=== PATIENT | female | born 1995 | race Caucasian/White ===

== ENCOUNTER 2016-09-18 14:05 | Outpatient (CLI) | payer OTHER ==
[~2016-09-18] VITALS: Ht 162.6 cm; Wt 87.1 kg
== END 2016-09-18 15:40 | disposition home or self-care (01) ==
LOC: GENOP 14:05
DX: O99.412 Diseases of the circulatory system complicating pregnancy, second trimester (principal); J10.1 Influenza due to other identified influenza virus with other respiratory manifestations; Z3A.26 26 weeks gestation of pregnancy
CPT/HCPCS: 81001; 87081; 87880; G0463

== ENCOUNTER 2016-11-07 21:41 | Outpatient (CLI) | payer OTHER | END 2016-11-07 23:41 | disposition home or self-care (01) | LOC: GENOP 21:41 | DX: O42.912 Preterm premature rupture of membranes, unspecified as to length of time between rupture and onset of labor, second trimester (principal); Z3A.17 17 weeks gestation of pregnancy | CPT/HCPCS: 81001; 83518; G0463 ==

== ENCOUNTER 2016-12-13 06:46 | Inpatient (IN) | payer OTHER ==
[~2016-12-13] VITALS: Ht 162.6 cm; Wt 87.5 kg
[2016-12-15] MEDS ORDERED: COLACE 100MG C100 MG PO (09:03)
== END 2016-12-15 11:45 | disposition home or self-care (01) | DRG 765 ==
LOC: OB 06:46
PROVIDERS: ADMIT Obstetrics & Gynecology
PROC: 3E0234Z Introduction of Serum, Toxoid and Vaccine into Muscle, Percutaneous Approach (ICD-10-PCS; 2016-12-13)
PROC: 10D00Z1 Extraction of Products of Conception, Low, Open Approach (ICD-10-PCS; principal; 2016-12-13 09:00)
DX: O99.284 Endocrine, nutritional and metabolic diseases complicating childbirth (principal); O98.82 Other maternal infectious and parasitic diseases complicating childbirth; E03.9 Hypothyroidism, unspecified; Z37.0 Single live birth; O75.89 Other specified complications of labor and delivery; M41.9 Scoliosis, unspecified; B95.1 Streptococcus, group B, as the cause of diseases classified elsewhere; Z3A.39 39 weeks gestation of pregnancy; O34.219 Maternal care for unspecified type scar from previous cesarean delivery; N85.8 Other specified noninflammatory disorders of uterus; O09.33 Supervision of pregnancy with insufficient antenatal care, third trimester; Z23 Encounter for immunization; Z82.49 Family history of ischemic heart disease and other diseases of the circulatory system; Z83.3 Family history of diabetes mellitus; Z83.49 Family history of other endocrine, nutritional and metabolic diseases; Z84.89 Family history of other specified conditions
CPT/HCPCS: 36415; 81001; 82800; 85014; 85018; 85025; 90715; C9113; J1580; J2274; J2405; J2590; J2765; J3010; J7120

== ENCOUNTER → 2020-10-07 | Outpatient (CLI) | payer OTHER ==
[~2020-10-07] MED LIST: COLACE 100MG C100 MG PO
== END ==
LOC: KOH-I 13:42
DX: M54.2 Cervicalgia (principal); M54.6 Pain in thoracic spine; M54.5 Low back pain
CPT/HCPCS: 72050; 72070; 72110

== ENCOUNTER → 2020-11-25 | Outpatient (CLI) | payer OTHER | LOC: EXRD 08:00 | DX: N17.9 Acute kidney failure, unspecified (principal) | CPT/HCPCS: 76775 ==

== ENCOUNTER 2021-02-24 21:26 | Emergency (ER) | payer OTHER | END 2021-02-25 01:14 | disposition home or self-care (01) | LOC: ER1 21:26 | DX: R11.2 Nausea with vomiting, unspecified (principal); R19.7 Diarrhea, unspecified; E03.9 Hypothyroidism, unspecified; Z86.73 Personal history of transient ischemic attack (TIA), and cerebral infarction without residual deficits; Z88.1 Allergy status to other antibiotic agents; Z20.822 Contact with and (suspected) exposure to COVID-19 | CPT/HCPCS: 99283; U0002 ==

== ENCOUNTER 2021-08-14 20:53 | Emergency (ER) | payer OTHER ==
[2021-08-15 00:15] LABS: BUN/CREATININE RATIO 9 (0-10)
[2021-08-15 00:37] LABS: HEMOGLOBIN 11.1 gm/dl (12.3-15.3); RED BLOOD COUNT 3.79 M/UL (4.00-5.10); WHITE BLOOD COUNT 9.3 K/UL (4.5-11.0)
[2021-08-15] MEDS ORDERED: MACROBID 100 M100 MG PO (03:56)
== END 2021-08-15 04:05 | disposition home or self-care (01) ==
LOC: ER1 20:53
PROVIDERS: Physician Assistant
DX: O23.40 Unspecified infection of urinary tract in pregnancy, unspecified trimester (principal); N39.0 Urinary tract infection, site not specified; Z88.1 Allergy status to other antibiotic agents; Z88.8 Allergy status to other drugs, medicaments and biological substances
CPT/HCPCS: 80053; 81001; 84702; 85025; 87086; 99283

== ENCOUNTER 2021-09-10 10:34 | Outpatient (CLI) | payer OTHER ==
[~2021-09-10 10:34] MED LIST changes: +MACROBID 100 M100 MG PO
== END 2021-09-10 13:32 | disposition home or self-care (01) ==
LOC: GENOP 10:34
DX: O36.8130 Decreased fetal movements, third trimester, not applicable or unspecified (principal); O99.283 Endocrine, nutritional and metabolic diseases complicating pregnancy, third trimester; E03.9 Hypothyroidism, unspecified; Z88.1 Allergy status to other antibiotic agents; Z3A.31 31 weeks gestation of pregnancy
CPT/HCPCS: 59025; 81001

== ENCOUNTER 2021-11-04 05:29 | Inpatient (IN) | payer OTHER ==
[~2021-11-04] VITALS: Ht 160 cm; Wt 95.3 kg
[2021-11-04 06:15] LABS: HEMOGLOBIN 9.9 gm/dl (12.3-15.3); RED BLOOD COUNT 3.7 M/UL (4.00-5.10)
[2021-11-04] MEDS ORDERED: PRENATAL VITAM1 EAC8 PO (06:16)
[2021-11-04] MEDS ORDERED: LEVOTHYROXINE150 MCG PO (06:16)
[2021-11-04] MEDS ORDERED: FEROSUL325 MG PO (06:16)
[2021-11-04] MEDS ORDERED: IBUPROFEN600 MG PO (07:45)
[2021-11-04] MEDS ORDERED: COLACE 100MG C100 MG PO (07:45)
[2021-11-04] MEDS ORDERED: HYDROCODON-ACE1 EAC6 PO (07:45)
[2021-11-05 02:57] LABS: HEMOGLOBIN 8.9 gm/dl (12.3-15.3)
== END 2021-11-06 17:16 | disposition home or self-care (01) | DRG 788 ==
LOC: OB 05:29
PROVIDERS: ADMIT Obstetrics & Gynecology
PROC: 4A1HXCZ Monitoring of Products of Conception, Cardiac Rate, External Approach (ICD-10-PCS; 2021-11-04)
PROC: 10D00Z1 Extraction of Products of Conception, Low, Open Approach (ICD-10-PCS; principal; 2021-11-04 07:30)
DX: O34.211 Maternal care for low transverse scar from previous cesarean delivery (principal); Z3A.39 39 weeks gestation of pregnancy; Z37.0 Single live birth; O99.284 Endocrine, nutritional and metabolic diseases complicating childbirth; E03.9 Hypothyroidism, unspecified; Z20.822 Contact with and (suspected) exposure to COVID-19; Z86.73 Personal history of transient ischemic attack (TIA), and cerebral infarction without residual deficits; M41.9 Scoliosis, unspecified; O99.892 Other specified diseases and conditions complicating childbirth; Z88.1 Allergy status to other antibiotic agents; Z28.310 Unvaccinated for COVID-19; Z82.49 Family history of ischemic heart disease and other diseases of the circulatory system; Z83.3 Family history of diabetes mellitus; Z83.49 Family history of other endocrine, nutritional and metabolic diseases
CPT/HCPCS: 36415; 81001; 82800; 85014; 85018; 85025; C9113; J1200; J1580; J1650; J1885; J2274; J2370; J2405; J2590; J3010; J7030; J7120

== ENCOUNTER 2022-01-09 17:17 | Emergency (ER) | payer OTHER ==
[~2022-01-09 17:17] MED LIST changes: +FEROSUL325 MG PO; +HYDROCODON-ACE1 EAC6 PO; +IBUPROFEN600 MG PO; +LEVOTHYROXINE150 MCG PO; +PRENATAL VITAM1 EAC8 PO
[2022-01-09] MEDS ORDERED: AMOXICILLIN500 MG PO (19:37)
== END 2022-01-09 19:55 | disposition home or self-care (01) ==
LOC: ER1 17:17
DX: J02.0 Streptococcal pharyngitis (principal); E03.9 Hypothyroidism, unspecified; Z88.1 Allergy status to other antibiotic agents; Z20.822 Contact with and (suspected) exposure to COVID-19
CPT/HCPCS: 0240U; 87081; 87880; 99283

== ENCOUNTER 2022-04-05 19:35 | Emergency (ER) | payer OTHER ==
[~2022-04-05 19:35] MED LIST changes: +AMOXICILLIN500 MG PO
[2022-04-05] MEDS ORDERED: IBUPROFEN600 MG PO (19:56)
== END 2022-04-05 20:08 | disposition home or self-care (01) ==
LOC: ER1 19:35
DX: K04.7 Periapical abscess without sinus (principal)
CPT/HCPCS: 99282

== ENCOUNTER 2022-04-07 11:02 | Emergency (ER) | payer OTHER ==
[2022-04-07 14:54] LABS: RED BLOOD COUNT 3.75 M/UL (4.00-5.10); WHITE BLOOD COUNT 8.9 K/UL (4.5-11.0)
[2022-04-07] MEDS ORDERED: AMOX TR-K CLV1 EAC4 PO (18:37)
== END 2022-04-07 19:20 | disposition left against medical advice (07) ==
LOC: ER1 11:02 → CDU 17:35 → ER1 17:35 → CDU 17:35
PROVIDERS: Nurse Practitioner
DX: K04.7 Periapical abscess without sinus (principal); L03.211 Cellulitis of face; E03.9 Hypothyroidism, unspecified; Z79.899 Other long term (current) drug therapy; Z88.1 Allergy status to other antibiotic agents
CPT/HCPCS: 70487; 80053; 81001; 83605; 84443; 84703; 85025; 86140; 87040; 87086; 96374; 96375; 99283; G0378; J0295; J1885; Q9967